=== PATIENT | male | born 1985 | race Caucasian/White ===

== ENCOUNTER 2019-08-12 09:46 | Outpatient (CLI) | payer OTHER ==
[2019-08-12 10:04] LABS: #Eosinphils 0.1 thou/uL (0.0-0.7); #Lymphocytes 1.7 thou/uL (1.20-3.40); #Monocytes 0.5 thou/uL (0.11-0.59); #Neutrophils 2.7 thou/uL (1.40-6.50); %Basophils 0.7 % (0.0-1.0); %Eosinophils 1.4 % (0.0-10.0); %Lymphocytes 33.6 % (21.0-51.0); %Monocytes 9.7 % (0.0-10.0); %Neutrophils 54.7 % (42.0-75.0); Hemoglobin 14.2 g/dL (14.0-18.0); Mean Corpuscular HGB CONC 33.5 g/dL (32.0-36.0); Mean Corpuscular Hemoglobin 30.7 pg (27.0-31.0); Mean Corpuscular Volume 91.7 fL (78.0-98.0); Mean Platelet Volume 6.5 fL (7.4-10.4); Platelet Count 196 thou/uL (130-400); RBC Distribution Width 13.2 % (11.5-14.5); Red Blood Cell (RBC) Count 4.63 mill/uL (4.70-6.10); White Blood Cell (WBC) Count 4.9 thou/uL (4.8-10.8)
[2019-08-12 10:19] LABS: ALT (SGPT) 33 U/L (8-55); AST (SGOT) 18 U/L (5-34); Albumin 4.3 g/dL (3.5-5.0); Alkaline Phosphatase 84 U/L (40-110); Anion Gap 13 mmol/L (10-20); BUN (Urea Nitrogen) 10 mg/dL (8.9-20.6); Bilirubin, Total 0.4 mg/dL (0.2-1.2); Calc. Creatinine Clearance 0 mL/min (70-130); Calcium 9.4 mg/dL (7.8-10.44); Carbon Dioxide 25 mmol/L (22-29); Chloride 108 mmol/L (98-107); Estimated GFR-MDRD Greater than 90; Glucose 98 mg/dL (70-105); Potassium 4.2 mmol/L (3.5-5.1); Protein, Total 7.3 g/dL (6.0-8.3); Sodium 142 mmol/L (136-145)
--- NOTE | 2019-08-12 11:15 | RAD ---
KUB: DATE: 08/12/19 HISTORY: Left-sided abdominal pain. History of an appendectomy. FINDINGS: There is air within some slightly distended small bowel loops, which are largely fluid-filled. There is air throughout the colon. I do not see obvious signs of obstruction. Questionable slight wall thic kening to the small bowel loops seen in the left mid abdomen. It may be helpful to obtain CT for furt her assessment. IMPRESSION: Slightly distended fluid-filled small bowel loops. Questionable slight fold thickening to one of the small bowel loops in the left mid abdomen. I would suggest consideration for CT for further assessmen t if clinically indicated. POS: [facility]
== END 2019-08-12 09:47 | disposition home or self-care (01) ==
LOC: SCSRAD 09:46
PROVIDERS: ATTEND Family Medicine
DX: R35.0 Frequency of micturition (principal); R10.32 Left lower quadrant pain; K63.89 Other specified diseases of intestine
CPT/HCPCS: 36415; 74018; 80053; 85025